=== PATIENT | male | born 1940 | race Caucasian/White ===

== ENCOUNTER 2021-03-09 15:02 | Outpatient (CLI) | payer MEDICARE, OTHER ==
[2021-03-10 00:54] LABS: SARS-CoV-2 PCR by NAA Not Detected (NotDetected)
== END 2021-03-09 15:03 | disposition home or self-care (01) ==
LOC: LABBT 15:02
DX: Z01.812 Encounter for preprocedural laboratory examination (principal); Z20.822 Contact with and (suspected) exposure to COVID-19
CPT/HCPCS: U0003; U0005

== ENCOUNTER 2021-03-13 12:56 | Outpatient (CLI) | payer MEDICARE, OTHER | END 2021-03-13 12:57 | disposition home or self-care (01) | PROVIDERS: ATTEND Student in an Organized Health Care Education/Training Program | DX: I69.891 Dysphagia following other cerebrovascular disease (principal); R13.12 Dysphagia, oropharyngeal phase; R63.39 Other feeding difficulties; Z20.822 Contact with and (suspected) exposure to COVID-19 | CPT/HCPCS: 74230 ==